=== PATIENT | male | born 1970 | race Caucasian/White ===

== ENCOUNTER 2016-06-05 21:57 | Emergency (ER) | payer BC ==
[~2016-06-05 21:57] MED LIST: ALLEGRA30 MG; MOTRIN600 MG PO
[2016-06-06] MEDS ORDERED: OCUFLOX5 ML LEFT EYE (00:53)
[2016-06-06] MEDS ORDERED: NORCO 5/3251 TAB PO (00:53)
== END 2016-06-06 00:55 ==
LOC: EDMED 21:57
DX: S05.02XA Injury of conjunctiva and corneal abrasion without foreign body, left eye, initial encounter (principal); Z96.1 Presence of intraocular lens; Z88.0 Allergy status to penicillin; X58.XXXA Exposure to other specified factors, initial encounter